=== PATIENT | female | born 2000 | race Caucasian/White ===

== ENCOUNTER 2021-06-25 14:42 | Emergency (ER) | payer OTHER ==
[~2021-06-25] VITALS: Ht 157.5 cm; Wt 108.9 kg
[2021-06-25] MEDS ORDERED: NAPROXEN (16:09)
[2021-06-25] MEDS ORDERED: KETO10TA2 PO (22:13)
[2021-06-25] MEDS ORDERED: DUI500 PO (22:13)
== END 2021-06-25 22:53 | disposition home or self-care (01) ==
LOC: ER 14:42 → EMR PED 15:04 → ER 15:04 → EMR PED 22:53
DX: N20.1 Calculus of ureter (principal); Z20.822 Contact with and (suspected) exposure to COVID-19